=== PATIENT | female | born 1990 | race African-American/Black ===

== ENCOUNTER 2017-08-17 21:55 | Emergency (ER) | payer OTHER ==
[~2017-08-17] VITALS: Ht 167.6 cm; Wt 58.5 kg
[~2017-08-17 21:55] MED LIST: BACTRIM DS TAB1 EACH PO; CLEOCIN HCL300 MG PO; IBUPROFEN 600600 M1 PO; PERCOCET 5-3251 EACH PO
[2017-08-17] MEDS ORDERED: KEFLEX500 M1 PO (23:02)
== END 2017-08-17 23:40 | disposition home or self-care (01) ==
LOC: ER 21:55
DX: N61.1 Abscess of the breast and nipple (principal)

== ENCOUNTER 2017-12-18 11:13 | Emergency (ER) | payer OTHER ==
[~2017-12-18] VITALS: Ht 167.6 cm; Wt 58.5 kg
[~2017-12-18 11:13] MED LIST changes: +KEFLEX500 M1 PO
[2017-12-18] MEDS ORDERED: PRENATAL VITAM1 EAC7 PO (11:32)
[2017-12-18 11:55] LABS: HEMATOCRIT 33.8 % (37.0-47.0); HEMOGLOBIN 11.3 gm/dL (12.0-15.0); MCH 28.6 pg (26.0-34.0); MCHC 33.4 g/dL (28.0-37.0); MCV 85.5 fL (80.0-100.0); RBC 3.96 mil/uL (4.20-5.00); RDW 13.1 % (10.5-14.5); WBC 5.7 thou/uL (4.0-11.0)
[2017-12-18 12:09] LABS: CALCIUM 9.2 mg/dL (8.5-10.1); CREATININE 0.7 mg/dL (0.6-1.0); POTASSIUM 3.5 mmol/L (3.5-5.1)
[2017-12-18 14:20] VITALS: BP 110/50
[2017-12-19 14:13] LABS: NEISSERIA GONORRHEA-PCR Negative (Negative)
== END 2017-12-18 14:20 | disposition home or self-care (01) ==
LOC: ER 11:13
PROVIDERS: Emergency Medicine
DX: O20.0 Threatened abortion (principal); Z3A.09 9 weeks gestation of pregnancy

== ENCOUNTER 2018-01-16 10:46 | Emergency (ER) | payer OTHER ==
[~2018-01-16] VITALS: Ht 167.6 cm; Wt 54.4 kg
[~2018-01-16 10:46] MED LIST changes: +PRENATAL VITAM1 EAC7 PO
[2018-01-16 11:14] LABS: URINE BILIRUBIN NEGATIVE (Negative); URINE BLOOD NEGATIVE (Negative); URINE CLARITY CLEAR; URINE COLOR YELLOW; URINE GLUCOSE-RANDOM* NEGATIVE (Negative); URINE KETONES NEGATIVE (Negative); URINE LEUKOCYTES NEGATIVE (Negative); URINE NITRITE NEGATIVE (Negative); URINE PROTEIN (DIPSTICK) NEGATIVE (Negative); URINE SPECIFIC GRAVITY 1.025 (1.005-1.035); URINE UROBILINOGEN 0.2 E.U./dl (0.2-1.0)
[2018-01-16] MEDS ORDERED: PROMS25 WY RECTAL (11:18)
[2018-01-16] MEDS ORDERED: PHENERGAN 25 MG25 M1 PO (11:18)
[2018-01-16 11:28] LABS: HEMOGLOBIN 11.8 gm/dL (12.0-15.0); PLATELET COUNT 263 thou/uL (150-400); WBC 6.9 thou/uL (4.0-11.0)
[2018-01-16 11:36] LABS: BASOPHILS 0.4 % (0.0-2.0); EOSINOPHILS 0.8 % (0.0-3.0); HEMATOCRIT 35.6 % (37.0-47.0); LYMPHOCYTES 18.9 % (24.0-44.0); MCHC 33.3 g/dL (28.0-37.0); MONOCYTES 6.6 % (1.0-8.0); POLYS 73.3 % (36.0-66.0); RBC 4.09 mil/uL (4.20-5.00); RDW 13.9 % (10.5-14.5)
[2018-01-16 11:38] LABS: CREATININE 0.6 mg/dL (0.6-1.0); POTASSIUM 3.4 mmol/L (3.5-5.1)
[2018-01-16 12:26] VITALS: BP 115/63
== END 2018-01-16 12:26 | disposition home or self-care (01) ==
LOC: ER 10:46
PROVIDERS: Emergency Medicine
DX: O26.891 Other specified pregnancy related conditions, first trimester (principal); R10.30 Lower abdominal pain, unspecified; R10.2 Pelvic and perineal pain; Z3A.13 13 weeks gestation of pregnancy

== ENCOUNTER 2018-02-26 17:29 | Emergency (ER) | payer OTHER ==
[~2018-02-26] VITALS: Ht 167.6 cm; Wt 57.1 kg
[~2018-02-26 17:29] MED LIST changes: +PHENERGAN 25 MG25 M1 PO; +PROMS25 WY RECTAL
[2018-02-26] MEDS ORDERED: BACTRIM DS TAB1 EACH PO (19:28)
[2018-02-26 19:48] VITALS: BP 95/56
== END 2018-02-26 19:49 | disposition home or self-care (01) ==
LOC: ER 17:29
DX: O91.112 Abscess of breast associated with pregnancy, second trimester (principal); Z3A.19 19 weeks gestation of pregnancy

== ENCOUNTER 2018-11-05 18:12 | Emergency (ER) | payer OTHER ==
[~2018-11-05] VITALS: Ht 167.6 cm; Wt 63.5 kg
[2018-11-05] MEDS ORDERED: BACTRIM DS TAB1 EACH PO (21:00)
[2018-11-05] MEDS ORDERED: NORCO 5-325 TA1 EACH PO (21:00)
[2018-11-05 21:16] VITALS: BP 125/79
== END 2018-11-05 21:17 | disposition home or self-care (01) ==
LOC: ER 18:12
DX: N61.1 Abscess of the breast and nipple (principal)